=== PATIENT | female | born 1950 | race Caucasian/White ===

== ENCOUNTER 2024-02-09 13:19 | Emergency (ER) | payer MEDICARE, OTHER | END 2024-02-09 17:33 | disposition home or self-care (01) | LOC: ERS 13:19 | DX: S72.002K Fracture of unspecified part of neck of left femur, subsequent encounter for closed fracture with nonunion (principal); M97.02XD Periprosthetic fracture around internal prosthetic left hip joint, subsequent encounter; I10 Essential (primary) hypertension; V87.8XXD Person injured in other specified noncollision transport accidents involving motor vehicle (traffic), subsequent encounter; Z55.0 Illiteracy and low-level literacy | CPT/HCPCS: 99284 ==